=== PATIENT | female | born 1950 | race Caucasian/White ===

== ENCOUNTER 2017-10-28 10:55 | Emergency (ER) | payer MEDICARE, OTHER ==
[~2017-10-28] VITALS: Ht 167.6 cm; Wt 77.4 kg
[2017-10-28] MEDS ORDERED: SODIUM CHLORIDE 0.9% 1,000 ML IV ONE (13:19)
[2017-10-28] MEDS ORDERED: PLEASE ENTER ALLERGIES MC SCH (13:30)
[2017-10-28] MEDS ORDERED: SODIUM CHLORIDE FLUSH 10ML SYR IVF ONE (13:30)
[2017-10-28 13:36] LABS: BASOPHILS # (AUTO) 0.04 x10^3/uL (0-0.1); BASOPHILS % (AUTO) 0 % (0-1); EOSINOPHILS % (AUTO) 0 % (1-7); LYMPHOCYTES % (AUTO) 13 % (22-44); MD NO; MEAN CORPUSCULAR HEMOGLOBIN 30.8 pg (27.0-34.8); MEAN CORPUSCULAR HGB CONC 34.1 g/dL (32.4-35.8); MEAN CORPUSCULAR VOLUME 90.3 fL (80-100); MEAN PLATELET VOLUME 8.1 fL (7.4-10.4); MONOCYTES # (AUTO) 0.66 x10^3/uL (0.2-0.8); MONOCYTES % (AUTO) 6 % (2-9); NEUTROPHILS # (AUTO) 9.51 x10^3/uL (1.8-6.8); NEUTROPHILS % (AUTO) 81 % (42-75); PLATELET COUNT 376 x10^3/uL (130-400); RED BLOOD COUNT 5.28 x10^6/uL (3.82-5.3); RED CELL DISTRIBUTION WIDTH 12.9 % (9.6-15.2)
[2017-10-28 13:45] LABS: PROTHROMBIN TIME 10.4 Seconds (9.6-11.5)
[2017-10-28 13:50] LABS: ALANINE AMINOTRANSFERASE 16 U/L (12-78); ALBUMIN 3.9 g/dL (3.4-5.0); ANION GAP 17 mmol/L (5-15); CALCIUM 9.6 mg/dL (8.5-10.1); CHLORIDE 104 mmol/L (98-107); CREATININE 1.51 mg/dL (0.55-1.02)
[2017-10-28 13:52] LABS: ALKALINE PHOSPHATASE 77 U/L (45-117); BILIRUBIN,TOTAL 0.5 mg/dL (0.2-1.0); TOTAL PROTEIN 8.2 g/dL (6.4-8.2)
[2017-10-28] MEDS ORDERED: ONDANSETRON ODT 4 MG ONE (14:03)
[2017-10-28] MEDS ORDERED: ONDANSETRON ODT 4 MG PO ONE (14:30)
[2017-10-28 14:45] VITALS: BP 156/85
[2017-10-28 14:45] LABS: MICROSCOPIC INDICATED
[2017-10-28 14:56] LABS: CULTURE INDICATED? YES
[2017-10-28] MEDS ORDERED: OMNIPAQUE 350 MG/ML, 100ML BOTTLE ONE (15:12)
== END 2017-10-28 16:25 | disposition home or self-care (01) ==
LOC: ED 14:11
DX: N39.0 Urinary tract infection, site not specified (principal); R10.13 Epigastric pain
CPT/HCPCS: 36415; 74177; 80053; 81001; 83690; 83735; 85025; 85610; 87077; 87086; 87186; 93005; 96360; 96361; 99285; J7030; Q0162; Q9967